=== PATIENT | male | born 1995 | race Hispanic/Latino ===

== ENCOUNTER → 2022-11-06 | Outpatient (CLI) | payer OTHER | LOC: M RAD 11:22 | DX: M25.511 Pain in right shoulder (principal); M25.512 Pain in left shoulder; M25.539 Pain in unspecified wrist; M17.0 Bilateral primary osteoarthritis of knee; M79.669 Pain in unspecified lower leg; M25.571 Pain in right ankle and joints of right foot; M25.572 Pain in left ankle and joints of left foot ==

== ENCOUNTER → 2022-11-22 | Outpatient (CLI) | payer OTHER | LOC: M PLARAD 08:19 | PROVIDERS: ATTEND Nurse Practitioner Family | DX: M50.222 Other cervical disc displacement at C5-C6 level (principal); M50.223 Other cervical disc displacement at C6-C7 level ==